=== PATIENT | female | born 2000 | race Caucasian/White ===

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

== ENCOUNTER 2019-04-30 17:46 | Emergency (ER) | payer OTHER ==
[~2019-04-30] VITALS: Ht 154.9 cm; Wt 52.2 kg
[~2019-04-30 17:46] MED LIST changes: -ACET500C5 PO; +AZIT250T PO; +BENZ200C68 PO; -CEPH-443 PO; -DOCU-144 PO; -FERR-31 PO; -FLUC150T17 PO; +FLUT9.9S NASAL; -HC1C30 TOP; -HYDR25SU24 PR; -IBUP-1542 PO; -METR500T PO; -NITR-58 PO; -ONDA4TAB14 PO; -PHEN-538 PO; -POLY17PO6 PO; -PRENAT PO
[2019-04-30 17:52] VITALS: BP 114/56; PULSE 71; RESP 18; Ht 154.9 cm; Wt 52.2 kg
[2019-04-30] MEDS ORDERED: MECL12.574 PO (20:46)
--- NOTE | 2019-04-30 21:00 | ERD ---
ER Documentation Chief Complaint Chief Complaint dizziness x 2 days ROS All systems reviewed and are negative except as per history of present illness. Medications Home Meds Active Scripts Meclizine Hcl* (Antivert*) 12.5 Mg Tab, 12.5 MG PO Q8H PRN for dizziness, #30 TAB Prov:GAEL WRAY DO 04/30/19 Benzonatate* (Benzonatate*) 200 Mg Capsule, 200 MG PO TID PRN for COUGH, #15 CAP Prov:LENA BARTLETT PA-C 11/27/18 Fluticasone Propionate (Flonase Allergy Relief) 9.9 Ml [place].susp, 1 SPRAY NASAL BID, #1 BOTTLE TO EACH NOSTRIL Prov:LENA BARTLETT PA-C 11/27/18 Azithromycin* (Zithromax*) 250 Mg Tablet, 250 MG PO .ZPACK DIRECTED, #6 TAB TAKE 500 MG (2 TABS) THE FIRST DAY THEN 250 MG (1 TAB) DAYS 2-5 Prov:LENA BARTLETT PA-C 11/27/18 Allergies Allergies: Coded Allergies: No Known Allergies (Verified Allergy, Mild, 01/29/17) PMhx/Soc History of Surgery: No Anesthesia Reaction: No Hx Neurological Disorder: No Hx Respiratory Disorders: No Hx Cardiac Disorders: No Hx Psychiatric Problems: No Hx Miscellaneous Medical Probl: No Hx Alcohol Use: No Hx Substance Use: No Hx Tobacco Use: No Physical Exam Vitals Vital Signs Date Temp Pulse Resp B/P (MAP) Pulse Ox O2 O2 Flow FiO2 Time Delivery Rate 04/30/19 97.4 71 18 114/56 99 17:52 (75) Physical Exam Const: No acute distress Head: Atraumatic Eyes: Normal Conjunctiva ENT: Normal External Ears, Nose and Mouth. Neck: Full range of motion. No meningismus. Resp: Clear to auscultation bilaterally Cardio: Regular rate and rhythm, no murmurs Abd: Soft, non tender, non distended. Normal bowel sounds Skin: No petechiae or rashes Back: No midline or flank tenderness Ext: No cyanosis, or edema Neur: Awake and alert Psych: Normal Mood and Affect Result Diagram: 04/30/19190904/30/191909 Results 24 hrs Laboratory Tests Test 04/30/19 19:10 White Blood Count 5.8 10^3/ul Red Blood Count 4.84 10^6/ul Hemoglobin 14.0 g/dl Hematocrit 41.3 % Mean Corpuscular Volume 85.3 fl Mean Corpuscular Hemoglobin 28.9 pg Mean Corpuscular Hemoglobin Concent 33.9 g/dl Red Cell Distribution Width 12.9 % Platelet Count 232 10^3/UL Mean Platelet Volume 10.8 fl Immature Granulocytes % 0.300 % Neutrophils % 58.9 % Lymphocytes % 30.8 % Monocytes % 7.8 % Eosinophils % 1.7 % Basophils % 0.5 % Nucleated Red Blood Cells % 0.0 /100WBC Immature Granulocytes # 0.020 10^3/ul Neutrophils # 3.4 10^3/ul Lymphocytes # 1.8 10^3/ul Monocytes # 0.5 10^3/ul Eosinophils # 0.1 10^3/ul Basophils # 0.0 10^3/ul Nucleated Red Blood Cells # 0.0 10^3/ul Sodium Level 143 mmol/L Potassium Level 4.2 mmol/L Chloride Level 108 mmol/L Carbon Dioxide Level 25 mmol/L Anion Gap 10 Blood Urea Nitrogen 18 mg/dl Creatinine 0.59 mg/dl Est Glomerular Filtrat Rate mL/min > 60 mL/min Glucose Level 93 mg/dl Calcium Level 9.5 mg/dl Total Bilirubin 0.6 mg/dl Direct Bilirubin 0.00 mg/dl Indirect Bilirubin 0.6 mg/dl Aspartate Amino Transf (AST/SGOT) 31 IU/L Alanine Aminotransferase (ALT/SGPT) 11 IU/L Alkaline Phosphatase 79 IU/L Total Protein 8.4 g/dl Albumin 4.8 g/dl Globulin 3.60 g/dl Albumin/Globulin Ratio 1.33 Thyroid Stimulating Hormone (TSH) 1.390 MIU/L Free Thyroxine 1.22 ng/dl Thyroxine (T4) 7.8 ug/dl Departure Diagnosis: Primary Impression: Dizziness Condition: Fair Patient Instructions: Possible Causes of Dizziness or Fainting Referrals: SHANE PAGAN (PCP) Additional Instructions: Call your primary care doctor TOMORROW for an appointment during the next 1-2 days.See the doctor sooner or return here if your condition worsens before your appointment time. GAEL WRAY DO Apr 30, 2019 21:00
== END 2019-04-30 20:47 | disposition home or self-care (01) ==
LOC: E/R 17:46
DX: R42 Dizziness and giddiness (principal)
CPT/HCPCS: 80053; 84436; 84439; 84443; 85025; Z7502; 99283

== ENCOUNTER 2019-06-25 14:48 | Emergency (ER) | payer OTHER ==
[~2019-06-25] VITALS: Ht 165.1 cm; Wt 52.9 kg
[~2019-06-25 14:48] MED LIST changes: +FAMO-96 PO; +MECL12.574 PO
[2019-06-25 15:09] VITALS: BP 144/82; PULSE 89; RESP 19; Ht 165.1 cm; Wt 52.9 kg
[2019-06-25] MEDS ORDERED: FAMOTIDINE 20 MG TAB PO STA (16:27)
[2019-06-25] MEDS ORDERED: LIDOCAINE/MYLANTA 40 ML BTL PO STA (16:27)
== END 2019-06-25 17:35 | disposition home or self-care (01) ==
LOC: FTE 14:48
DX: R10.13 Epigastric pain (principal)
CPT/HCPCS: Z7502; Z7610; 99282